=== PATIENT | female | born 1950 | race Asian ===

== ENCOUNTER 2017-08-11 00:42 | Inpatient (IN) | payer MEDICARE, OTHER ==
[2017-08-11] VITALS (8 sets, daily range): BP systolic 125–148; BP diastolic 66–80
[~2017-08-11] VITALS: Ht 157.5 cm; Wt 65.8 kg
[2017-08-11 01:18] LABS: EOSINOPHILS % (AUTO) 1.2 % (0.0-3.0); HEMATOCRIT 37.9 % (37.0-47.0); HEMOGLOBIN 13.4 G/DL (12.0-16.0); LYMPHOCYTES % (AUTO) 29.2 % (20.0-45.0); MEAN CORPUSCULAR VOLUME 94 FL (80-99); MONOCYTES % (AUTO) 5.6 % (1.0-10.0); NEUTROPHILS % (AUTO) 63.1 % (45.0-75.0); PLATELET COUNT 214 K/UL (150-450); RED BLOOD COUNT 4.03 M/UL (4.20-5.40); RED CELL DISTRIBUTION WIDTH 11.4 % (11.6-14.8); WHITE BLOOD COUNT 7.3 K/UL (4.8-10.8)
[2017-08-11 01:30] LABS: ANION GAP 9 mmol/L (5-15); BLOOD UREA NITROGEN 27 mg/dL (7-18); CALCIUM 9.8 MG/DL (8.5-10.1); CARBON DIOXIDE 25 MMOL/L (21-32); CHLORIDE 105 MMOL/L (98-107); CREATININE 1.2 MG/DL (0.55-1.30); POTASSIUM 3.9 MMOL/L (3.5-5.1); SODIUM 139 MMOL/L (136-145)
--- NOTE | 2017-08-11 01:35 | Emergency Room Report ---
History of Present Illness General Chief Complaint: Syncope Source: Patient, Family Member Present Illness HPI This is a 67-year-old Kyrgyz speaking female with history hypertension diabetes. She also has a history of renal insufficiency. She presents with syncope. She has profuse diarrhea today. She was on the toilet and according to her she had a syncopal episode. Lasted for a minute. No focal deficit. No diaphoresis. No palpitation. She felt better now but still feel weak. No slurring of her speech. No chest pain. Allergies: Coded Allergies: No Known Allergies (Unverified , 08/11/17) Patient History Past Medical History: see triage record, old chart reviewed, DM, HTN, renal disease Past Surgical History: other Pertinent Family History: none Social History: Denies: smoking Now: No Immunizations: other Reviewed Nursing Documentation: PMH: Agreed; PSxH: Agreed Nursing Documentation-PMH Past Medical History: No History, Except For Hx Cardiac Problems: Yes - High Cholesterol Hx Diabetes: Yes Hx Neurological Problems: Yes - Glaucoma, Peripheral neuropathy Review of Systems Constitutional: Reports: malaise, weakness Eye: Denies: eye pain, blurred vision ENT: Denies: ear pain, nose congestion, throat swelling Respiratory: Denies: cough, shortness of breath Cardiovascular: Denies: chest pain, palpitations Gastrointestinal: Reports: diarrhea; Denies: abdominal pain, nausea, vomiting Musculoskeletal: Denies: back pain, joint pain Skin: Denies: rash Neurological: Denies: headache, numbness Endocrine: Denies: increased thirst, increased urine Hematologic/Lymphatic: Denies: easy bruising All Other Systems: negative except mentioned in HPI Physical Exam Vital Signs Date Time Temp Pulse Resp B/P (MAP) Pulse Ox O2 Delivery O2 Flow Rate FiO2 08/11/17 00:31 97.6 88 14 119/64 98 Room Air 97.5 vitals unremarkable Sp02 EP Interpretation: reviewed, normal General Appearance: well appearing, no apparent distress, alert Head: normocephalic, atraumatic Eyes: bilateral eye PERRL, bilateral eye EOMI ENT: hearing grossly normal, normal pharynx Neck: full range of motion, supple, no meningismus Respiratory: chest non-tender, lungs clear, normal breath sounds Cardiovascular #1: regular rate, rhythm, no murmur Gastrointestinal: normal bowel sounds, non tender, no mass, no organomegaly, no bruit, non-distended Musculoskeletal: back normal, gait/station normal, normal range of motion Psychiatric: mood/affect normal Skin: warm/dry Medical Decision Making Diagnostic Impression: Primary Impression: Syncope Qualified Codes: R55 - Syncope and collapse Additional Impressions: Prerenal azotemia Diarrhea Qualified Codes: R19.7 - Diarrhea, unspecified UTI (urinary tract infection) Qualified Codes: N30.00 - Acute cystitis without hematuria Proteinuria Qualified Codes: R80.9 - Proteinuria, unspecified ER Course Patient presents with syncope. No evidence of TIA or CVA. No evidence of PE. His most likely secondary to orthostatic hypotension secondary to her diarrhea. She felt better after IV fluid. No evidence of any arrhythmia she's been here. Will admit for IV fluid and further workup. I discussed the case with Dr. Thornton who will admit. Laboratory Tests Test 08/11/17 00:45 08/11/17 02:01 White Blood Count 7.3 K/UL (4.8-10.8) Red Blood Count 4.03 M/UL (4.20-5.40) L Hemoglobin 13.4 G/DL (12.0-16.0) Hematocrit 37.9 % (37.0-47.0) Mean Corpuscular Volume 94 FL (80-99) Mean Corpuscular Hemoglobin 33.2 PG (27.0-31.0) H Mean Corpuscular Hemoglobin Concent 35.2 G/DL (32.0-36.0) Red Cell Distribution Width 11.4 % (11.6-14.8) L Platelet Count 214 K/UL (150-450) Mean Platelet Volume 7.1 FL (6.5-10.1) Neutrophils (%) (Auto) 63.1 % (45.0-75.0) Lymphocytes (%) (Auto) 29.2 % (20.0-45.0) Monocytes (%) (Auto) 5.6 % (1.0-10.0) Eosinophils (%) (Auto) 1.2 % (0.0-3.0) Basophils (%) (Auto) 1.0 % (0.0-2.0) Sodium Level 139 MMOL/L (136-145) Potassium Level 3.9 MMOL/L (3.5-5.1) Chloride Level 105 MMOL/L (98-107) Carbon Dioxide Level 25 MMOL/L (21-32) Anion Gap 9 mmol/L (5-15) Blood Urea Nitrogen 27 mg/dL (7-18) H Creatinine 1.2 MG/DL (0.55-1.30) Estimat Glomerular Filtration Rate 44.7 mL/min (>60) Glucose Level 91 MG/DL (74-106) Calcium Level 9.8 MG/DL (8.5-10.1) Total Bilirubin 0.4 MG/DL (0.2-1.0) Aspartate Amino Transf (AST/SGOT) 72 U/L (15-37) H Alanine Aminotransferase (ALT/SGPT) 66 U/L (12-78) Alkaline Phosphatase 91 U/L (46-116) Total Creatine Kinase 38 U/L (26-308) Creatine Kinase MB 0.7 NG/ML (0.0-3.6) Creatine Kinase MB Relative Index 1.8 Troponin I 0.000 ng/mL (0.000-0.056) Total Protein 8.3 G/DL (6.4-8.2) H Albumin 4.1 G/DL (3.4-5.0) Globulin 4.2 g/dL Albumin/Globulin Ratio 1.0 (1.0-2.7) Urine Color Pale yellow Urine Appearance Clear Urine pH 6 (4.5-8.0) Urine Specific Counselor 1.015 (1.005-1.035) Urine Protein 1+ (NEGATIVE) H Urine Glucose (UA) Negative (NEGATIVE) Urine Ketones Negative (NEGATIVE) Urine Occult Blood 2+ (NEGATIVE) H Urine Nitrite Negative (NEGATIVE) Urine Bilirubin Negative (NEGATIVE) Urine Urobilinogen Normal MG/DL (0.0-1.0) Urine Leukocyte Esterase 2+ (NEGATIVE) H Urine RBC 5-10 /HPF (0 - 2) H Urine WBC 10-15 /HPF (0 - 2) H Urine Squamous Epithelial Cells Few /LPF (NONE/OCC) Urine Bacteria Few /HPF (NONE) Lab Results Impression labs unremarkable EKG Diagnostic Results Rate: normal Rhythm: NSR ST Segments: no acute changes Rhythm Strip Diag. Results Rhythm Strip Time: 01:35 EP Interpretation: yes Rate: 84 Rhythm: NSR, no PVC's, no ectopy Chest X-Ray Diagnostic Results Chest X-Ray Diagnostic Results : Chest X-Ray Ordered: Yes # of Views/Limited/Complete: 1 View Indication: Other - syncope EP Interpretation: Yes Interpretation: no consolidation, no effusion, no pneumothorax, no acute cardiopulmonary disease Impression: No acute disease Electronically Signed by: Edward Montes MD Last Vital Signs Date Time Temp Pulse Resp B/P (MAP) Pulse Ox O2 Delivery O2 Flow Rate FiO2 08/11/17 00:36 97.5 85 14 132/76 98 Room Air 97.5 Status: improved Disposition: ADMITTED INPATIENT Condition: Serious Referrals: NOT CHOSEN JULIO CESAR/,REFERRING (PCP) EDWARD MONTES M.D. Aug 11, 2017 01:35
[2017-08-11 01:42] LABS: ALANINE AMINOTRANSFERASE 66 U/L (12-78); ALBUMIN 4.1 G/DL (3.4-5.0); ALKALINE PHOSPHATASE 91 U/L (46-116); ASPARTATE AMINO TRANSFERASE 72 U/L (15-37); BILIRUBIN,TOTAL 0.4 MG/DL (0.2-1.0); CKMB 0.7 NG/ML (0.0-3.6); CREATINE KINASE 38 U/L (26-308)
[2017-08-11] MEDS ORDERED: LANTUS SOL100 UNIT/1 SUBQ (02:22)
[2017-08-11] MEDS ORDERED: ASPIR 8181 MG ORAL (02:22)
[2017-08-11] MEDS ORDERED: TRADJENTA5 MG PO (02:22)
[2017-08-11] MEDS ORDERED: HUMALOG100 UNIT/4 SUBQ (02:22)
[2017-08-11] MEDS ORDERED: GEMFIBROZIL600 MG ORAL (02:22)
[2017-08-11] MEDS ORDERED: VITAMIN D400 INTLU ORAL (02:22)
[2017-08-11] MEDS ORDERED: PRAVASTATIN SOD20 M1 ORAL (02:22)
[2017-08-11] MEDS ORDERED: GABAPENTIN300 MG ORAL (02:22)
[2017-08-11] MEDS ORDERED: METFORMIN HCL1000 M1 ORAL (02:22)
[2017-08-11 02:40] LABS: APPEARANCE,URINE CLEAR; BILIRUBIN, URINE NEGATIVE (NEGATIVE); COLOR,URINE PALE YELLOW; GLUCOSE, URINE (UA) NEGATIVE (NEGATIVE); KETONES,URINE NEGATIVE (NEGATIVE); LEUKOCYTE ESTERASE ,URINE 2+ (NEGATIVE); NITRITE,URINE NEGATIVE (NEGATIVE); PH,URINE 6 (4.5-8.0); PROTEIN,URINE 1+ (NEGATIVE); UROBILINOGEN,URINE NORMAL MG/DL (0.0-1.0)
[2017-08-11] MEDS ORDERED: cefTRIAXone 1 GM in NS 55 ML IVPB ONE (03:00)
[2017-08-11] MEDS: NovoLOG Insulin Flexpen SUBQ SCH ×4 (06:30→21:00)
--- NOTE | 2017-08-11 09:23 | Diagnostic Imaging Report ---
Indication: Syncope Technique: XRAY Chest 1v Comparison: None Findings: Lung volumes are low. Heart size within upper limits for normal. Mediastinal contours are sharp. There are atherosclerotic calcifications in the aorta. There is no focal airspace consolidation, pleural effusion or pneumothorax. There are mild degenerative changes of the spine. No acute osseous abnormality is seen. There is mild nonspecific distention of the stomach with ingested contents. IMPRESSION: No definite radiographic evidence of acute cardiopulmonary disease. Additional findings as above. Study obtained via the emergency department however patient admitted to the hospital at time of dictation of the final report.
[2017-08-11] MEDS: Aspirin Baby 81mg ORAL SCH (10:15)
[2017-08-11] MEDS: Heparin 5000 units/ml inj SUBQ SCH ×2 (10:16→21:42)
--- NOTE | 2017-08-11 11:09 | Diagnostic Imaging Report ---
Indication: Syncope Technique: Continuous helical CT scanning of the head was performed utilizing automated exposure control without intravenous contrast material. Axial and coronal reconstructions were obtained. Comparison: None CT dose: Total DLP 1347.65 mGycm; CTDI vol 70.38 mGy Findings: There is no acute intracranial hemorrhage, mass effect or cortical edema. The ventricles, cisterns and sulci are within normal limits for age. Minimal periventricular hypoattenuation is seen, a nonspecific finding most commonly related to sequela of chronic microvascular ischemic change. There is atherosclerotic calcification within the bilateral internal carotid and right vertebral arteries. Visualized mastoid air cells and paranasal sinuses are unremarkable. No focal lesions of the bony calvarium or soft tissues of the scalp are seen. IMPRESSION: No evidence of acute intracranial hemorrhage, mass effect or cortical edema. MRI may be obtained for more sensitive evaluation as clinically indicated. Mild nonspecific periventricular hypoattenuation suggestive of chronic ischemic microvascular changes. The CT scanner at [facility] is accredited by the [employer] and the scans are performed using protocols designed to limit radiation exposure to as low as reasonably achievable to attain images of sufficient resolution adequate for diagnostic evaluation.
--- NOTE | 2017-08-11 12:45 | History and Physical Report ---
DATE OF ADMISSION: 08/11/2017 CHIEF COMPLAINT: Syncopal episode. HISTORY OF PRESENT ILLNESS: This is a 67-year-old Faroese [place] female, who presented to the ED via the fire department paramedics. The patient passed out for about a minute. Prior to that, the patient has had profuse diarrhea. PAST MEDICAL HISTORY: 1. Hypertensive cardiovascular disease. 2. Type 2 diabetes mellitus. 3. Chronic kidney disease, stage unknown. HOME MEDICATIONS: Baby aspirin, Neurontin, gemfibrozil, Lantus, lispro or Humalog insulin, Tradjenta, metformin, pravastatin, and vitamin D3. ALLERGIES: No known drug allergies. FAMILY HISTORY: Unremarkable. SOCIAL HISTORY: She lives at home. HABITS: She is nonsmoker and nondrinker. There is no history of illicit drug abuse. REVIEW OF SYSTEMS: HEENT: Hearing and eyesight are normal. ENDOCRINE: Significant for type 2 diabetes mellitus. RESPIRATORY: She denies shortness of breath, cough, or hemoptysis. CARDIOVASCULAR: She denies chest pain or palpitations. GASTROINTESTINAL: Significant for diarrhea. NEUROLOGICAL: Please refer to history of present illness. PHYSICAL EXAMINATION: GENERAL: This is an elderly frail Faroese [place] female, who is in no acute distress. VITAL SIGNS: Blood pressure 141/76, pulse 85 and regular, respirations 20, and temperature 97.3. HEENT: The head is normocephalic and atraumatic. Pupils are equal, round, and reactive to light and accommodation consensually. NECK: Supple. Trachea midline. There was no lymphadenopathy or thyromegaly. LUNGS: Clear to auscultation and percussion. HEART: Regular rate and rhythm without rubs, murmurs, or gallops. ABDOMEN: Soft and nontender. Bowel sounds were active. EXTREMITIES: No clubbing, cyanosis, or edema. NEUROLOGIC: She is alert and oriented x4. Cranial nerves II through XII intact. LABORATORY AND ANCILLARY DATA: CBC within normal limits. Chemistry, BUN 27, creatinine 1.2. Troponin level is zero. Urinalysis, 1+ protein, sediment, 5 to 10 rbc's, 10 to 15 white blood cells. EKG, normal sinus rhythm, no signs of ischemia. Chest x-ray, no acute disease. ASSESSMENT: 1. Syncopal episode, etiology unclear. 2. Hypertensive cardiovascular disease. 3. Type 2 diabetes mellitus. 4. Chronic kidney disease, stage unknown. PLAN: 1. Check orthostatics, most likely secondary as a result of the patient's volume depletion due to diarrhea. 2. Rule out vasodepressor syncope. 3. Obtain orthostatic vital signs. 4. IV fluid rehydration. 5. Check 2D echo and carotid duplex. Kim Nick M.D. DR: ESE JOB#: [id number] CC:
[2017-08-12] VITALS (7 sets, daily range): BP systolic 132–145; BP diastolic 70–81
[2017-08-12] MEDS: NovoLOG Insulin Flexpen SUBQ SCH ×4 (06:30→20:31)
[2017-08-12] MEDS: Aspirin Baby 81mg ORAL SCH (08:28)
[2017-08-12] MEDS: Heparin 5000 units/ml inj SUBQ SCH ×2 (08:29→20:32)
--- NOTE | 2017-08-12 09:05 | General Progress Note ---
Assessment/Plan Assessment/Plan Orthostatic Hypotension 2nd to Diabetic Neuropathy. ====> Use elestic stockings. Subjective Allergies: Coded Allergies: No Known Allergies (Unverified , 08/11/17) Subjective No new c/o. Per nursing severely orthostatic! Objective Last 24 Hour Vital Signs Date Time Temp Pulse Resp B/P (MAP) Pulse Ox O2 Delivery O2 Flow Rate FiO2 08/12/17 04:00 70 08/12/17 04:00 98.2 73 15 132/70 97 Room Air 98.2 08/12/17 00:00 97.7 77 16 136/77 95 Room Air 97.7 08/12/17 00:00 72 08/11/17 20:00 98.2 82 16 125/71 96 Room Air 98.2 08/11/17 20:00 82 08/11/17 20:00 82 83 86 08/11/17 16:00 80 08/11/17 16:00 78.0 80 20 129/74 97 Room Air 78.0 08/11/17 12:00 79 08/11/17 12:00 98.2 80 18 132/69 96 Room Air 98.2 Intake and Output 08/11/17 08/12/17 19:00 07:00 Intake Total 360 ml 120 ml Balance 360 ml 120 ml Intake Oral 360 ml 120 ml # Voids 4 2 Height (Feet): 5 Height (Inches): 2.00 Weight (Pounds): 145 Objective BP drops from lying to standing > 20 points. CV RR Lungs CTA Abd SNT. BS + E No CCE Kim Nick MD August 12, 2017 09:05
--- NOTE | 2017-08-12 09:28 | Cardiology Report ---
APPROVED REPORT EXAM: Two-dimensional and M-mode echocardiogram with Doppler and color Doppler. M-Mode DIMENSIONS IVSd1.7 (0.7-1.1cm)Left Atrium (MM)2.9 (1.6-4.0cm) LVDd3.8 (3.5-5.6cm)Aortic Root3.3 (2.0-3.7cm) PWd1.0 (0.7-1.1cm)Aortic Cusp Exc.1.7 (1.5-2.0cm) IVSs2.1 cm LVDs2.4 (2.5-4.0cm) PWs1.4 cm Technically difficult study due to poor apical windows. Normal left ventricular chamber size, systolic function and wall motion to extent visualized. Left ventricular ejection fraction estimated to be 70 %. Mild left ventricular hypertrophy by 2-D. No evidence of pericardial effusion. All other cardiac chamber sizes are within normal limits. Focal aortic valve sclerosis with adequate cusp excursion. Mildly Thickened mitral valve leaflets with normal excursion. Mildly Mitral annulus and aortic root calcification. Normal pulmonic valve structure. Normal tricuspid valve structure. IVC at normal size with physiologic collapse. A color flow and spectral Doppler study was performed and revealed: No aortic regurgitation. Trace mitral regurgitation. Mitral diastolic velocities suggest reduced left ventricular relaxation c/w mild LV diastolic dysfunction (Grade I ). Mild tricuspid regurgitation. Tricuspid systolic velocities suggests peak right ventricular systolic pressure of 21 mmHg. No Pulmonic regurgitation present.
[2017-08-12] MEDS: 1/2NS w/KCl 20mEq 1000ml 1,000 ML IV SCH ×2 (10:39→20:02)
[2017-08-13] VITALS: BP 144/75
[2017-08-13 04:00] VITALS: BP 133/82
[2017-08-13] MEDS: 1/2NS w/KCl 20mEq 1000ml 1,000 ML IV SCH (05:34)
[2017-08-13] MEDS: NovoLOG Insulin Flexpen SUBQ SCH (06:19)
--- NOTE | 2017-08-13 07:09 | General Progress Note ---
Assessment/Plan Assessment/Plan Orthostatic Hypotension 2nd to Diabetic Neuropathy. ====> Use elestic stockings DC home with instructions re changing positions slowly and using elastic stockings when out of bed! CHERRY RN.. Subjective Allergies: Coded Allergies: No Known Allergies (Unverified , 08/11/17) Subjective No new c/o. Per nursing still severely orthostatic! BP drops > 20 points Objective Last 24 Hour Vital Signs Date Time Temp Pulse Resp B/P (MAP) Pulse Ox O2 Delivery O2 Flow Rate FiO2 08/13/17 04:00 97.4 74 19 133/82 96 Room Air 97.4 08/13/17 03:41 74 08/13/17 00:00 97.6 82 18 144/75 96 Room Air 97.6 08/12/17 23:50 79 08/12/17 21:14 78 79 88 08/12/17 20:00 97.8 78 18 134/71 96 Room Air 97.8 08/12/17 19:49 78 08/12/17 16:00 97.9 79 18 139/80 95 Room Air 97.9 08/12/17 16:00 81 08/12/17 13:35 98.3 80 18 145/81 95 Room Air 98.3 08/12/17 12:00 98.3 80 18 145/80 95 Room Air 98.3 08/12/17 12:00 78 08/12/17 09:10 82 08/12/17 09:05 87 08/12/17 09:00 85 08/12/17 08:00 97.7 72 18 141/76 97 Room Air 97.7 08/12/17 08:00 77 Intake and Output 08/12/17 08/13/17 19:00 07:00 Intake Total 360 ml 948 ml Output Total 400 ml Balance -40 ml 948 ml Intake Oral 360 ml IV Total 948 ml Output Urine Total 400 ml # Voids 2 Height (Feet): 5 Height (Inches): 2.00 Weight (Pounds): 145 Objective BP drops from lying to standing > 20 points. CV RR Lungs CTA Abd SNT. BS + E No CCE Kim Nick MD August 13, 2017 07:09
[2017-08-13] MEDS ORDERED: PRAVACHOL20 MG ORAL (07:11)
[2017-08-13] MEDS ORDERED: NOVOLOG100 UNITS1 SUBQ (07:11)
[2017-08-13] MEDS ORDERED: ASPIRIN81 MG ORAL (07:11)
[2017-08-13 08:00] VITALS: BP 130/75
[2017-08-13] MEDS: Aspirin Baby 81mg ORAL SCH (08:31)
[2017-08-13] MEDS: Heparin 5000 units/ml inj SUBQ SCH (08:35)
--- NOTE | 2017-08-14 18:47 | Discharge Summary ---
Discharge Summary Hospital Course Date of Admission Aug 11, 2017 at 01:55 Date of Discharge August 13, 2017 at 09:59 Admitting Diagnosis Syncope HPI Yamel Knox is a 67 year old female who was admitted on Aug 11, 2017 at 01:55 for Syncope Hospital Course [id number] Discharge Discharge Disposition Patient was discharged to Home with Home Health(06) Chelsy Lomax NP August 14, 2017 18:47
--- NOTE | 2017-08-14 21:30 | Discharge Summary 2 SIG ---
DATE OF ADMISSION: 08/11/2017 DATE OF DISCHARGE: 08/13/2017 BRIEF HOSPITAL COURSE: The patient is a 67-year-old Spanish [place] female, who presented to ED via paramedics as the patient passed out for about a minute. She was having profuse diarrhea prior to the episode. She has medical history significant for hypertensive cardiovascular disease, type 2 diabetes mellitus, and chronic kidney disease. On evaluation at ED, CBC was within normal limits. BUN was 27, creatinine 1.2. Troponin was negative. Urinalysis showed 10 to 15 wbc, 5 to 10 rbc, and 1+ protein. EKG was in normal sinus rhythm with no signs of ischemia. Chest x-ray with no acute disease. She was admitted for evaluation of syncopal episode and for management of hypertensive cardiovascular disease. She was given IV fluid rehydration. Echocardiogram done showed ejection fraction of 70% with no aortic regurgitation. She also had a head CT that was negative for acute intracranial hemorrhage, mass effect, or edema. Venous carotid duplex showed no significant plaques within the right and left extracranial carotid arteries, vertebral arteries within normal limits. Syncope was secondary to orthostatic hypotension, secondary to diabetic neuropathy. The patient was severely orthostatic. She was advised to use elastic stockings and was eventually discharged home with instructions regarding changing positions slowly and using elastic stockings in and out of bed. She was eventually discharged home. FINAL DIAGNOSES: 1. Syncope, secondary to orthostatic hypotension, secondary to diabetic neuropathy. 2. Diabetes mellitus, type 2. 3. Chronic kidney disease, stage unknown. 4. Hypertensive cardiovascular disease. DISPOSITION: The patient was discharged home with home health. DISCHARGE MEDICATIONS: Refer to medication list. DISCHARGE INSTRUCTIONS: Follow up with PCP in a week. Kim Nick M.D. I have been assigned to dictate discharge summary on this account and I was not involved in the patient's management. Chelsy Lomax N.P. DR: JOHNNIE JOB#: [id number] CC: JOHNSON
== END 2017-08-13 09:59 | disposition home health service (06) | DRG 312 ==
LOC: EDBD 00:42 → EMR 01:00 → 2E 01:55 → EDBEDREQ 02:57
DX: I95.1 Orthostatic hypotension (principal); E11.40 Type 2 diabetes mellitus with diabetic neuropathy, unspecified; H40.9 Unspecified glaucoma; I13.10 Hypertensive heart and chronic kidney disease without heart failure, with stage 1 through stage 4 chronic kidney disease, or unspecified chronic kidney disease; E11.22 Type 2 diabetes mellitus with diabetic chronic kidney disease; N18.9 Chronic kidney disease, unspecified; Z79.4 Long term (current) use of insulin
CPT/HCPCS: 36415; 70450; 71045; 80053; 81003; 82550; 82553; 82962; 84484; 85025; 87086; 93005; 93306; 93880; 99285; J1815